=== PATIENT | female | born 1945 | race Caucasian/White ===

== ENCOUNTER 2020-12-18 08:18 | Outpatient (CLI) | payer MEDICARE ==
[~2020-12-18] VITALS: Ht 167.6 cm; Wt 113.4 kg
[2020-12-18] MEDS ORDERED: albuterol 2.5 MG/3 ML nebule NEB ONE (09:30)
== END 2020-12-18 23:59 | disposition home or self-care (01) ==
LOC: RT 08:18
PROVIDERS: ATTEND Internal Medicine Pulmonary Disease
DX: J44.9 Chronic obstructive pulmonary disease, unspecified (principal)
CPT/HCPCS: 94060; 94727; 94729; 94760

== ENCOUNTER 2024-10-13 05:26 | Inpatient (IN) | payer MEDICARE ==
[2024-10-05 12:11] LABS: BASOPHILS # (AUTO) 0.1 X10'3 (0-0.2); BASOPHILS % (AUTO) 1.3 % (0-1); EOSINOPHILS # (AUTO) 0.1 X10'3 (0-0.9); EOSINOPHILS % (AUTO) 1.4 % (0-6); LYMPHOCYTES # (AUTO) 1.6 X10'3 (1.1-4.8); LYMPHOCYTES % (AUTO) 18.8 % (21-51); MEAN CORPUSCULAR HEMOGLOBIN 25.1 PG (27.0-31.0); MEAN CORPUSCULAR VOLUME 78.4 FL (78-98); MEAN PLATELET VOLUME 7.5 FL (7.4-10.4); NEUTROPHILS # (AUTO) 5.6 X10'3 (1.8-7.7); NEUTROPHILS % (AUTO) 66.5 % (42-75); PRE OP HEMATOCRIT 40.6 % (35.0-45.0); PRE OP PLATELET COUNT 447 X10'3 (140-440); PRE OP WHITE BLOOD COUNT 8.5 10'3 (4.8-10.8); RED BLOOD COUNT 5.18 X10'6 (4.20-5.60)
[2024-10-05 12:13] LABS: BILIRUBIN,URINE NEGATIVE (Neg); CLARITY,URINE CLEAR (Clear); COLOR,URINE YELLOW (Yellow); GLUCOSE, URINE >=1000 mg/dl (Neg); KETONES,URINE NEGATIVE (Neg); LEUKOCYTE ESTERASE ,URINE TRACE (Neg); NITRITES, URINE NEGATIVE (Neg); OCCULT BLOOD,URINE SMALL (Neg); PROTEIN,URINE NEGATIVE (Neg); UROBILINOGEN,URINE 0.2 E.U/dL (0.2-1.0)
[2024-10-05 12:16] LABS: UA COLLECTION TYPE CLN CATCH MIDSTREAM
[2024-10-05 12:27] LABS: BACTERIA,URINE FEW /HPF (Neg); SQUAMOUS EPITHELIAL CELL,UR FEW /LPF (FEW); TRANSITIONAL EPI CELLS,URINE FEW /HPF; WBC,URINE 0-4 /HPF (0-4)
[2024-10-05 12:30] LABS: PRE OP PROTIME 25.1 SECONDS (9.0-12.0)
[2024-10-05 12:38] LABS: ALBUMIN 3.4 G/DL (3.4-5.0); ALBUMIN/GLOBULIN RATIO 0.7 (1.1-1.5); ALKALINE PHOSPHATASE 127 IU/L (46-116); BLOOD UREA NITROGEN 11 MG/DL (7-18); BUN/CREATININE RATIO 11.7 (10.0-20.0); CALCIUM 8.8 MG/DL (8.5-10.1); CHLORIDE 102 MMOL/L (99-107); CREATININE 0.94 MG/DL (0.40-0.90); PRE OP ALT 22 U/L (30-65); PRE OP ANION GAP 7 (8-16); PRE OP AST 16 U/L (10-37); PRE OP BILIRUB, TOTAL 0.3 MG/DL (0.0-1.0); PRE OP GLUCOSE 81 MG/DL (70-104); PRE OP POTASSIUM 3.5 MMOL/L (3.4-5.1); PRE OP SODIUM 141 MMOL/L (135-145); TOTAL CARBON DIOXIDE 31.6 MMOL/L (24-32); TOTAL PROTEIN 8.5 G/DL (6.4-8.2); eGFR 58 ML/MIN
[2024-10-05 12:39] LABS: PRE OP INR 2.7 INR
[2024-10-05 14:12] LABS: HEMOGLOBIN A1C 5.9 % (4.5-6.2)
[~2024-10-13] VITALS: Ht 167.6 cm; Wt 102.0 kg
[2024-10-13] VITALS (27 sets, daily range): BP systolic 101–148; BP diastolic 35–103; PULSE 55–83; RESP 10–34; TEMP 97.2–97.6; O2SAT 92–98
[~2024-10-13 05:26] MED LIST: ALBU8HFA INH; AMIT50TA15 PO; CHOL100046 PO; EMPA10TA PO; FLUT1BLS4 INH; FURO-150 PO; GABA300C PO; IXEK80SY3 SQ; LOVA20TA2 PO; MAGN250T29 PO; METF-1203 PO; POTA8CAP20 PO; SOTA80TA73 PO; TRAM50TA2 PO; WARF3TAB56 PO
[2024-10-13] MEDS ORDERED: ondansetron/PF 4mg/2ml inj IV PRN ×2 (05:30→08:15)
[2024-10-13] MEDS: VANCOMYCIN/H2O 1.5g/300mL PB 300 ML IV ONE (05:55)
[2024-10-13] MEDS: ringers solution, lacted 1,000 ML IV SCH (05:55)
[2024-10-13] MEDS: ceFAZolin 2gm in dextrose, iso 50 ML IV ONE (05:55)
[2024-10-13] MEDS: DOCUMENT DATE & TIME OF BETA-BLOCKER PO ONE (05:55)
[2024-10-13] MEDS: famotidine 20mg tablet PO ONE (05:55)
[2024-10-13] MEDS ORDERED: protamine sulfate 10mg/ml inj. ONE (06:23)
[2024-10-13] MEDS ORDERED: iohexol 350MG/ML 100ml bottle IV ONE (06:51)
[2024-10-13] MEDS: albuterol 2.5 MG/3 ML nebule NEB ONE (06:59)
[2024-10-13 07:04] LABS: PRE OP PROTIME 17.4 SECONDS (9.0-12.0)
[2024-10-13] MEDS ORDERED: desflurane 240ml liquid inh. IH ONE (07:15)
[2024-10-13 07:16] LABS: PRE OP INR 1.8 INR
[2024-10-13] MEDS ORDERED: midazolam 1 mg/ML 2ml injection ONE (07:25)
[2024-10-13] MEDS ORDERED: fentaNYL/PF 50MCG/1 ML 2ML syringe ONE (07:25)
[2024-10-13] MEDS ORDERED: propofol inj 20 ML IV ONE (07:35)
[2024-10-13] MEDS ORDERED: LIDOcaine 1%/PF 5ML 10 MG/ML VIAL ONE (07:35)
[2024-10-13] MEDS ORDERED: heparin 1,000unit/ml 10ml vial 10 ML ONE (07:42)
[2024-10-13] MEDS ORDERED: ondansetron/PF 4mg/2ml inj ONE (08:02)
[2024-10-13] MEDS ORDERED: dexamethasone sod phosphate 4mg/ml inj. ONE (08:02)
[2024-10-13] MEDS ORDERED: sugammadex 200mg/2ml injection IV ONE (08:03)
[2024-10-13] MEDS ORDERED: magnesium sulf-water 4G/100mL 100 ML IV PRN (08:15)
[2024-10-13] MEDS ORDERED: pantoprazole 40mg Tablet.DR PO PRN (08:15)
[2024-10-13] MEDS ORDERED: proCHLORperazine 10 MG/2 ml inj IV PRN (08:15)
[2024-10-13] MEDS ORDERED: ALPRAZolam 0.25mg tablet PO PRN (08:15)
[2024-10-13] MEDS ORDERED: magnesium sulf-water 2g/50mL 50 ML IV PRN (08:15)
[2024-10-13] MEDS ORDERED: potassium Cl 20mEq/100mL bag 100 ML IV PRN (08:15)
[2024-10-13] MEDS ORDERED: potassium Cl 20 mEq SR tablet PO PRN (08:15)
[2024-10-13] MEDS ORDERED: glucagon, human recombinant 1mg kit SUBCUT PRN (08:15)
[2024-10-13] MEDS ORDERED: potassium CL 10mEq/100ml bag 100 ML IV PRN (08:15)
[2024-10-13] MEDS ORDERED: acetaminophen 325mg tablet PO PRN (08:15)
[2024-10-13] MEDS ORDERED: dextrose 50%-water 50ml dispensing syringe IV PRN ×2 (08:15)
[2024-10-13] MEDS ORDERED: diphenhydrAMINE 25mg capsule PO PRN (08:15)
[2024-10-13] MEDS ORDERED: docusate sod 100mg capsule PO PRN (08:15)
[2024-10-13] MEDS ORDERED: labetalol 20mg/4ml (5mg/ml) syringe IV PRN (08:15)
[2024-10-13] MEDS ORDERED: hydrALAZINE 20mg/ml inj. IV PRN (08:15)
[2024-10-13] MEDS ORDERED: DEXTROSE 15 GM of carb/4 tabs (each vial/BOTTLE has 4 tablets) PO PRN ×2 (08:15)
[2024-10-13] MEDS ORDERED: potassium Cl 40MEQ/1/2NS 520ml 520 ML IV PRN (08:15)
[2024-10-13] MEDS ORDERED: potassium Cl 40MEQ/270ML bag 250 ML IV PRN (08:15)
[2024-10-13] MEDS: INSULIN LISPRO 100 UNIT/ML INSULN.PEN MULTI-DOSE SQ SCH ×2 (12:00)
[2024-10-13] MEDS: ceFAZolin 1GM/D5W- ADD-VANTAGE 50 ML IV SCH (16:24)
[2024-10-13] MEDS: sod chloride 0.9% 10ml flush syringe IV SCH (16:28)
[2024-10-13] MEDS: normal saline 1000ml 1,000 ML IV SCH (16:28)
[2024-10-13] MEDS: vancomycin inj 1,000 MG in normal saline 250ml IV soln 250 ML IV SCH (20:08)
[2024-10-13] MEDS: HYDROcodone/acetaminophen 5mg/325mg tablet PO PRN (20:08)
[2024-10-14 06:00] VITALS: BP 134/67; PULSE 57; RESP 16; TEMP 97.4; O2SAT 93
[2024-10-14 07:49] LABS: BASOPHILS # (AUTO) 0.1 X10'3 (0-0.2); BASOPHILS % (AUTO) 0.5 % (0-1); EOSINOPHILS % (AUTO) 0 % (0-6); HEMATOCRIT 33.7 % (35.0-45.0); HEMOGLOBIN 11.1 g/dl (12.0-16.0); LYMPHOCYTES # (AUTO) 2.2 X10'3 (1.1-4.8); LYMPHOCYTES % (AUTO) 16.9 % (21-51); MEAN CORPUSCULAR HEMOGLOBIN 24.8 PG (27.0-31.0); MEAN CORPUSCULAR HGB CONC 32.8 g/dL (33.0-36.5); MEAN CORPUSCULAR VOLUME 75.8 FL (78-98); MONOCYTES # (AUTO) 1.6 X10'3 (0-0.9); MONOCYTES % (AUTO) 12.8 % (2-12); NEUTROPHILS # (AUTO) 8.9 X10'3 (1.8-7.7); NEUTROPHILS % (AUTO) 69.8 % (42-75); PLATELET COUNT 336 X10'3 (140-440); RED BLOOD COUNT 4.45 X10'6 (4.20-5.60); RED CELL DISTRIBUTION WIDTH 16.3 % (11.5-14.5); WHITE BLOOD COUNT 12.8 X10'3 (4.5-11.0)
[2024-10-14 07:55] VITALS: RESP 16; O2SAT 57
[2024-10-14 07:57] LABS: INR 1.5 INR; PROTHROMBIN TIME 15.1 SECONDS (9.0-12.0)
[2024-10-14 08:19] LABS: ALANINE AMINOTRANSFERASE 15 U/L (12-78); ALBUMIN 2.9 G/DL (3.4-5.0); ALBUMIN/GLOBULIN RATIO 0.8 (1.1-1.5); ALKALINE PHOSPHATASE 98 IU/L (46-116); ANION GAP 7 (8-16); ASPARTATE AMINO TRANSFERASE 18 U/L (10-37); BILIRUBIN,TOTAL 0.3 MG/DL (0.1-1.0); BLOOD UREA NITROGEN 10 MG/DL (7-18); BUN/CREATININE RATIO 11.1 (10.0-20.0); CALCIUM 8.4 MG/DL (8.5-10.1); CHLORIDE 107 MMOL/L (99-107); GLUCOSE 105 MG/DL (70-104); POTASSIUM 4.1 MMOL/L (3.5-5.1); PRO BRAIN NATRIURETIC PEPTIDE 834 PG/ML (0-450); SODIUM 141 MMOL/L (135-145); TOTAL CARBON DIOXIDE 27.4 MMOL/L (24-32); TOTAL PROTEIN 6.7 G/DL (6.4-8.2); eCRCL 48 ML/MIN; eGFR 61 ML/MIN
[2024-10-14 11:00] VITALS: BP 113/57; PULSE 67; RESP 16; TEMP 97.5; O2SAT 96
== END 2024-10-14 11:16 | disposition home or self-care (01) | DRG 274 ==
LOC: PAS IN 05:26 → PCU 3S 16:15
PROVIDERS: ADMIT Student in an Organized Health Care Education/Training Program; ATTEND Student in an Organized Health Care Education/Training Program
PROC: B24BZZ4 Ultrasonography of Heart with Aorta, Transesophageal (ICD-10-PCS; 2024-10-13)
PROC: 02L73DK Occlusion of Left Atrial Appendage with Intraluminal Device, Percutaneous Approach (ICD-10-PCS; principal; 2024-10-13 07:15)
DX: I48.91 Unspecified atrial fibrillation (principal); Z00.6 Encounter for examination for normal comparison and control in clinical research program; Z88.8 Allergy status to other drugs, medicaments and biological substances; Z79.01 Long term (current) use of anticoagulants
CPT/HCPCS: 33340; 36415; 71045; 71046; 76937; 80053; 81001; 82948; 83036; 83735; 83880; 85025; 85347; 85610; 85730; 86885; 86900; 86901; 86920; 87081; 87088; 93005; 93308; 93312; 93325; 94640; 94760; A4615; A4618; A6258; A6449; C1760; C1889; C1893; C1894; G0378; J0690; J1100; J1644; J1815; J2250; J2405; J2704; J2710; J2720; J3010; J3370; J3372; J3490; J7030; J7050; J7120; P9016; Q9967

== ENCOUNTER 2025-01-12 11:05 | Day surgery (SDC) | payer MEDICARE ==
[~2025-01-12] VITALS: Ht 157.5 cm; Wt 85.0 kg
[2025-01-12 12:00] VITALS: BP 132/65; PULSE 61; RESP 16; TEMP 98.2; O2SAT 96
[2025-01-12] MEDS ORDERED: normal saline 1000ml 1,000 ML IV SCH (12:05)
[2025-01-12] MEDS ORDERED: fentaNYL/PF 50MCG/1 ML 2ML syringe IV ONE (12:05)
[2025-01-12] MEDS ORDERED: MIDAZolam 1mg/ml 10ml vial IV ONE (12:05)
[2025-01-12] MEDS ORDERED: fentaNYL/PF 50MCG/1 ML 2ML syringe ONE (12:13)
[2025-01-12] MEDS ORDERED: midazolam 1 mg/ML 2ml injection ONE (12:13)
[2025-01-12] MEDS ORDERED: METO25TA6 PO (12:14)
[2025-01-12 12:29] LABS: MEAN PLATELET VOLUME 8.0 FL (7.4-10.4); RED CELL DISTRIBUTION WIDTH 18.9 % (11.5-14.5)
[2025-01-12 12:43] LABS: CREATININE 0.86 MG/DL (0.40-0.90); TOTAL CARBON DIOXIDE 24.2 MMOL/L (24-32); eCRCL 43 ML/MIN; eGFR 64 ML/MIN
[2025-01-12 12:49] LABS: APTT 30 SECONDS (22-32); INR 1.7 INR
[2025-01-12 13:00] VITALS: BP 107/50; PULSE 56; RESP 17; O2SAT 93
[2025-01-12] MEDS ORDERED: ASPI81TA52 PO (13:05)
[2025-01-12] MEDS ORDERED: CLOP-32 PO (13:06)
[2025-01-12 13:15] VITALS: BP 106/48; PULSE 58; RESP 16; O2SAT 94
[2025-01-12 13:30] VITALS: BP 115/51; PULSE 56; RESP 16; O2SAT 94
--- NOTE | 2025-01-13 19:09 | CARDIOLOGY REPORT ---
APPROVED REPORT EXAM: Focused, limited transesophageal 2D and color flow Doppler echocardiogram. 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 LEFT VENTRICLE Normal LV size and wall thickness. Overall systolic function is normal. LVEF is 60-65%. ATRIA LA is moderately dilated. Left atrial appendage evaluated at 0 degrees, 45 degrees, 90 degrees, and 1 35 degrees for proper positioning and leaks around watchman device, negative finding. Intact interat rial septum without evidence of L to R shunt s/p transseptal puncture by color Doppler. PERICARDIUM Normal pericardium. No effusion. CONCLUSION Normal LV size and wall thickness. Overall systolic function is normal. LVEF is 60-65%. LA is moderat hector dilated. Left atrial appendage evaluated at 0 degrees, 45 degrees, 90 degrees, and 135 degrees fo r proper positioning and leaks around watchman device, negative finding. Intact interatrial septum wi thout evidence of L to R shunt s/p transseptal puncture by color Doppler. Normal pericardium. No effu donnie. Conclusion Normal LV size and wall thickness. Overall systolic function is normal. LVEF is 60-65%. LA is moderately dilated. Left atrial appendage evaluated at 0 degrees, 45 degrees, 90 degrees, and 135 degrees for proper positioning and leaks around watchman device, negative finding. Intact interat rial septum without evidence of L to R shunt s/p transseptal puncture by color Doppler. Normal pericardium. No effusion.
== END 2025-01-12 13:35 | disposition home or self-care (01) ==
LOC: SSTAY O 11:05
PROVIDERS: ATTEND Student in an Organized Health Care Education/Training Program
DX: I48.91 Unspecified atrial fibrillation (principal); I10 Essential (primary) hypertension; G47.33 Obstructive sleep apnea (adult) (pediatric); E11.9 Type 2 diabetes mellitus without complications; Z88.8 Allergy status to other drugs, medicaments and biological substances; Z79.899 Other long term (current) drug therapy; Z98.890 Other specified postprocedural states
CPT/HCPCS: 80048; 85025; 85610; 85730; 92960; 93312; 93325; A4615; J2250; J3010; J7030; 93308; 99152; 99153